=== PATIENT | female | born 1940 | race Caucasian/White ===

== ENCOUNTER 2016-12-27 07:07 | Day surgery (SDC) | payer OTHER, MEDICARE ==
[~2016-12-27 07:07] MED LIST: CIPROFLOXACIN HCL 500 MG TABLET PO PRN
[2016-12-27] MEDS ORDERED: LIDOCAINE HCL 10 APPL CARTRIDGE TP ONE (08:15)
[2016-12-27 08:31] VITALS: BP 116/64
== END 2016-12-27 07:08 | disposition home or self-care (01) ==
LOC: AMB 07:07
PROVIDERS: ATTEND Urology
PROC: 3E1K88X Irrigation of Genitourinary Tract using Irrigating Substance, Via Natural or Artificial Opening Endoscopic, Diagnostic (ICD-10-PCS; 2016-12-27)
PROC: 0TJB8ZZ Inspection of Bladder, Via Natural or Artificial Opening Endoscopic (ICD-10-PCS; principal; 2016-12-27 08:00)
DX: N31.9 Neuromuscular dysfunction of bladder, unspecified (principal); Z87.440 Personal history of urinary (tract) infections; E11.9 Type 2 diabetes mellitus without complications; I10 Essential (primary) hypertension; E03.9 Hypothyroidism, unspecified; E78.5 Hyperlipidemia, unspecified; E66.9 Obesity, unspecified; Z68.32 Body mass index [BMI] 32.0-32.9, adult; Z87.891 Personal history of nicotine dependence